=== PATIENT | male | born 1945 | race Caucasian/White ===

== ENCOUNTER 2018-06-09 13:40 | Inpatient (IN) | payer MEDICAID, MEDICARE ==
[~2018-06-09] VITALS: Ht 177.8 cm; Wt 63.5 kg
[~2018-06-09 13:40] MED LIST: ASPI-650 PO; CHOL100011 PO; INSU100I11 SQ; INSU100I13 SQ; INSU100V11 SQ; MAGN400T7 PO; METO10TA2 PO; NPH,100V5 SQ; ONDA4TAB10 PO; PROC10VI3 IM; SIMV40TA3 PO
[2018-06-09] MEDS ORDERED: ONDANSETRON 2MG/ML, 2ML IVPush ONE (14:00)
[2018-06-09] MEDS ORDERED: D5%-0.45% NACL 1,000 ML IV SCH (14:00)
[2018-06-09] MEDS ORDERED: MORPHINE SULFATE 4 MG/ML, 1ML IVPush PRN (14:00)
[2018-06-09] MEDS ORDERED: PLEASE ENTER HEIGHT AND WEIGHT MC SCH (14:00)
[2018-06-09] MEDS ORDERED: MORPHINE SULFATE 4 MG/ML, 1ML ONE (14:06)
[2018-06-09] MEDS ORDERED: ONDANSETRON 2MG/ML, 2ML ONE (14:06)
[2018-06-09 14:10] LABS: BASOPHILS # (AUTO) 0.01 x10^3/uL (0-0.1); BASOPHILS % (AUTO) 0 % (0-1); EOSINOPHILS # (AUTO) 0.01 x10^3/uL (0-0.4); EOSINOPHILS % (AUTO) 0 % (1-7); LYMPHOCYTES # (AUTO) 1.14 x10^3/uL (1-3.4); LYMPHOCYTES % (AUTO) 14 % (22-44); MD NO; MEAN CORPUSCULAR HEMOGLOBIN 31.4 pg (27.5-34.5); MEAN CORPUSCULAR HGB CONC 33.4 g/dL (33.2-36.2); MEAN CORPUSCULAR VOLUME 94.1 fL (81-97); MEAN PLATELET VOLUME 7.4 fL (7.4-10.4); MONOCYTES % (AUTO) 11 % (2-9); NEUTROPHILS # (AUTO) 6.28 x10^3/uL (1.8-6.8); NEUTROPHILS % (AUTO) 75 % (42-75); PLATELET COUNT 265 x10^3/uL (130-400); RED BLOOD COUNT 4.32 x10^6/uL (4.38-5.82); RED CELL DISTRIBUTION WIDTH 13.5 % (9.4-14.8)
[2018-06-09 14:14] LABS: ALBUMIN 3.3 g/dL (3.4-5.0); ANION GAP 6 mmol/L (5-15); CALCIUM 8.8 mg/dL (8.5-10.1); CHLORIDE 103 mmol/L (98-107); CREATININE 1.19 mg/dL (0.7-1.3)
--- NOTE | 2018-06-09 14:16 | NUR ---
PT ARRIVES FROM HOME VIA EMS AFTER HAVING A MGLF AT HOME. PT REPORTS HE FELL LAST NIGHT ON HIS WAY TO THE DINNER TABLE. WAS HAVIGN SOME PAIN BUT CONTINUED TO WALK. HOWEVER THIS MORNING PT WAS UNABLE TO MOVE. PT REPORTS HE JUST FELL ON THE TILE FLOOR AT HOME ON HIS LEFT HIP. PT DENIES ANY HEAD TRUAMA OR LOC. PT ON ARRIVAL HAS EXTERNALLY ROTATED LEFT FOOT AND ECCYMOSIS AROUND LEFT HIP. PT REPORTS MODERATE PAIN AND ALSO HAS DEFORMITY TO LEFT HIP PRESENT. PT HAS GOOD PULSES INTACT PEDAL AND FEMORAL BILATERALLY. PT CONNECTED TO MONITORS AND CALL LIGHT IN REACH. PT PLACED IN FALL RISK GOWN AND SOCKS. PT GIVEN FALL PREVENTION TEACHING. [facility]. PT WAS HYPOGLYCEMIC PER EMS BUT ORAL GLUCOSE GIVEN AND BG TO NORMAL.
--- NOTE | 2018-06-09 14:19 | NUR ---
PT MEDICATED PER [facility]. PIV WITH [id number] STARTED. PT MEDICATED FOR PAIN WELL.
[2018-06-09] MEDS ORDERED: INSU100I43 SC (14:23)
[2018-06-09] MEDS ORDERED: INSU100I28 SC (14:23)
--- NOTE | 2018-06-09 15:11 | NUR ---
Jania grullon in [facility] - 06/09/18 at 1512 by JUSTINO LAST MEAL @0930 THIS MORNING WITH H20
--- NOTE | 2018-06-09 15:12 | NUR ---
LAST MEAL @0930 THIS MORNING WITH H20
[2018-06-09 16:15] VITALS: BP 107/84
[2018-06-09] MEDS ORDERED: morphine SULFATE 10 MG/ML, 1ML IVPush PRN (16:30)
[2018-06-09] MEDS ORDERED: ONDANSETRON ODT 4 MG PO PRN (16:30)
[2018-06-09] MEDS ORDERED: ONDANSETRON 2MG/ML, 2ML IVPush PRN (16:30)
[2018-06-09 17:29] VITALS: BP 107/84
[2018-06-09 20:12] VITALS: BP 116/72
[2018-06-09] MEDS ORDERED: INSULIN LISPRO 100 UNITS/ML, PEN SQ-INSULIN SCH (21:00)
[2018-06-09] MEDS: INSULIN LISPRO 100 UNITS/ML, PEN SQ-INSULIN SCH (22:05)
[2018-06-09] MEDS: D5%-0.45% NACL 1,000 ML IV SCH (23:45)
[2018-06-10] MEDS ORDERED: GLUCAGON 1 MG IM PRN (00:30)
[2018-06-10] MEDS ORDERED: DEXTROSE 4 GM TAB.CHEW PO PRN (00:30)
[2018-06-10] MEDS ORDERED: DEXTROSE 50%, 50ML SYRINGE IVPush PRN (00:30)
[2018-06-10 01:11] VITALS: BP 107/68
[2018-06-10] MEDS: INSULIN LISPRO 100 UNITS/ML, PEN SQ-INSULIN SCH ×4 (03:07→20:31)
[2018-06-10 05:42] LABS: BASOPHILS # (AUTO) 0.01 x10^3/uL (0-0.1); BASOPHILS % (AUTO) 0 % (0-1); EOSINOPHILS # (AUTO) 0.04 x10^3/uL (0-0.4); EOSINOPHILS % (AUTO) 1 % (1-7); LYMPHOCYTES # (AUTO) 1.09 x10^3/uL (1-3.4); LYMPHOCYTES % (AUTO) 17 % (22-44); MD NO; MEAN CORPUSCULAR HEMOGLOBIN 32.8 pg (27.5-34.5); MEAN CORPUSCULAR HGB CONC 34.6 g/dL (33.2-36.2); MEAN CORPUSCULAR VOLUME 94.7 fL (81-97); MEAN PLATELET VOLUME 7.2 fL (7.4-10.4); MONOCYTES # (AUTO) 0.77 x10^3/uL (0.2-0.8); MONOCYTES % (AUTO) 12 % (2-9); NEUTROPHILS # (AUTO) 4.34 x10^3/uL (1.8-6.8); NEUTROPHILS % (AUTO) 70 % (42-75); PLATELET COUNT 222 x10^3/uL (130-400); RED CELL DISTRIBUTION WIDTH 13.5 % (9.4-14.8)
[2018-06-10 05:50] LABS: CHLORIDE 103 mmol/L (98-107)
[2018-06-10 05:58] LABS: ALANINE AMINOTRANSFERASE 17 U/L (12-78); ALBUMIN 2.6 g/dL (3.4-5.0); ALKALINE PHOSPHATASE 66 U/L (45-117); ANION GAP 6 mmol/L (5-15); BILIRUBIN,TOTAL 0.4 mg/dL (0.2-1.0); CREATININE 0.84 mg/dL (0.7-1.3); TOTAL PROTEIN 5.6 g/dL (6.4-8.2)
[2018-06-10 07:45] VITALS: BP 111/62
[2018-06-10] MEDS: D5%-0.45% NACL 1,000 ML IV SCH ×2 (08:54→14:10)
[2018-06-10] MEDS: SODIUM CHLORIDE FLUSH 10ML SYR IVF SCH ×2 (08:54→20:30)
[2018-06-10] MEDS ORDERED: PROMETHAZINE 25 MG/ML, 1ML IV PRN (09:00)
[2018-06-10] MEDS ORDERED: FENTANYL PF 100 MCG/2ML IV PRN (09:00)
[2018-06-10] MEDS ORDERED: METOPROLOL 1 MG/ML, 5ML IV PRN (09:00)
[2018-06-10] MEDS ORDERED: LABETALOL 5MG/ML, 20ML IV PRN (09:00)
[2018-06-10] MEDS ORDERED: PROCHLORPERAZINE 5 MG/ML, 2ML IV PRN (09:00)
[2018-06-10] MEDS ORDERED: DIPHENHYDRAMINE 50 MG/ML, 1ML IVPush PRN (09:00)
[2018-06-10] MEDS ORDERED: OXYcodone 5 MG/5 ML ORAL.SOL UDC PO PRN (09:00)
[2018-06-10] MEDS ORDERED: HALOPERIDOL 5 MG/ML IV PRN (09:00)
[2018-06-10] MEDS ORDERED: hydrALAzine 20 MG/ML, 1ML IV PRN (09:00)
[2018-06-10] MEDS ORDERED: HYDROmorphone 2 MG/ML, 1ML IVPush PRN (09:00)
[2018-06-10] MEDS ORDERED: MEPERIDINE/PF 25MG/0.5ML IVPush PRN (09:00)
[2018-06-10] MEDS ORDERED: FENTANYL PF 100 MCG/2ML ONE ×2 (10:52→11:23)
[2018-06-10] MEDS ORDERED: SUCCINYLCHOLINE 20 MG/ML, 10ML ONE (10:55)
[2018-06-10] MEDS ORDERED: CEFAZOLIN 1,000 MG ONE (10:55)
[2018-06-10] MEDS ORDERED: PHENYLEPHRINE 10 MG/ML ONE (10:55)
[2018-06-10] MEDS ORDERED: PROPOFOL 10 MG/ML, 20ML ONE (10:55)
[2018-06-10] MEDS ORDERED: ONDANSETRON 2MG/ML, 2ML ONE (10:55)
[2018-06-10] MEDS ORDERED: ROCURONIUM 10MG/ML,5ML ONE (10:55)
[2018-06-10] MEDS ORDERED: ACETAMINOPHEN 650 MG/20.3 ML UDC ONE (12:22)
[2018-06-10] MEDS ORDERED: OXYcodone 5 MG/5 ML ORAL.SOL UDC ONE (12:22)
[2018-06-10] MEDS: ACETAMINOPHEN 325 MG TABLET PO PRN (12:23)
[2018-06-10 13:10] VITALS: BP 110/69
[2018-06-10] MEDS ORDERED: POTASSIUM CHLORIDE 20 MEQ TAB.ER.PRT PO ONE (16:00)
[2018-06-10] MEDS: CALCIUM CARBONATE 500 MG TAB.CHEW PO PRN (16:15)
[2018-06-10 20:32] VITALS: BP 119/65
[2018-06-11 01:09] VITALS: BP 106/65
[2018-06-11] MEDS: D5%-0.45% NACL 1,000 ML IV SCH (03:43)
[2018-06-11 05:22] LABS: ANION GAP 6 mmol/L (5-15); CALCIUM 8.1 mg/dL (8.5-10.1); CHLORIDE 104 mmol/L (98-107)
[2018-06-11 05:23] LABS: BASOPHILS # (AUTO) 0.02 x10^3/uL (0-0.1); BASOPHILS % (AUTO) 0 % (0-1); EOSINOPHILS # (AUTO) 0.09 x10^3/uL (0-0.4); EOSINOPHILS % (AUTO) 1 % (1-7); LYMPHOCYTES # (AUTO) 0.77 x10^3/uL (1-3.4); LYMPHOCYTES % (AUTO) 11 % (22-44); MD NO; MEAN CORPUSCULAR HEMOGLOBIN 32.9 pg (27.5-34.5); MEAN CORPUSCULAR HGB CONC 34.7 g/dL (33.2-36.2); MEAN CORPUSCULAR VOLUME 94.9 fL (81-97); MEAN PLATELET VOLUME 7.6 fL (7.4-10.4); MONOCYTES # (AUTO) 0.69 x10^3/uL (0.2-0.8); MONOCYTES % (AUTO) 10 % (2-9); NEUTROPHILS # (AUTO) 5.17 x10^3/uL (1.8-6.8); NEUTROPHILS % (AUTO) 77 % (42-75); PLATELET COUNT 212 x10^3/uL (130-400); RED CELL DISTRIBUTION WIDTH 13.1 % (9.4-14.8)
[2018-06-11 05:25] LABS: CREATININE 0.87 mg/dL (0.7-1.3)
[2018-06-11] MEDS: ENOXAPARIN 40 MG/0.4 ML SQ SCH (05:49)
[2018-06-11 06:57] VITALS: BP 110/63
[2018-06-11] MEDS: OXYcodone IR 5MG TABLET PO PRN ×2 (07:45→16:13)
[2018-06-11] MEDS: SODIUM CHLORIDE FLUSH 10ML SYR IVF SCH ×2 (07:45→21:19)
[2018-06-11] MEDS: INSULIN LISPRO 100 UNITS/ML, PEN SQ-INSULIN SCH ×4 (07:46→21:00)
[2018-06-11] MEDS: INSULIN GLARGINE 100 UNITS/ML, PEN SQ-INSULIN SCH (08:34)
[2018-06-11 14:00] VITALS: BP 118/71
[2018-06-11] MEDS: ACETAMINOPHEN 325 MG TABLET PO PRN (16:13)
[2018-06-11 19:48] VITALS: BP 113/65
[2018-06-12 01:29] VITALS: BP 97/60
[2018-06-12] MEDS: ENOXAPARIN 40 MG/0.4 ML SQ SCH (06:33)
[2018-06-12 06:55] VITALS: BP 108/61
[2018-06-12] MEDS: INSULIN LISPRO 100 UNITS/ML, PEN SQ-INSULIN SCH ×4 (07:38→21:40)
[2018-06-12] MEDS: OXYcodone IR 5MG TABLET PO PRN (08:12)
[2018-06-12] MEDS: INSULIN GLARGINE 100 UNITS/ML, PEN SQ-INSULIN SCH (09:27)
[2018-06-12] MEDS: SODIUM CHLORIDE FLUSH 10ML SYR IVF SCH ×2 (09:28→21:39)
[2018-06-12] MEDS: SODIUM CHLORIDE 0.9% 1,000 ML IV SCH ×2 (11:25→21:39)
[2018-06-12] MEDS ORDERED: DOCUSATE 100 MG CAPSULE PO PRN (11:30)
[2018-06-12] MEDS ORDERED: POLYETHYLENE GLYCOL 17 GM PACKET NG PRN (11:30)
[2018-06-12 11:44] LABS: BASOPHILS # (AUTO) 0.01 x10^3/uL (0-0.1); BASOPHILS % (AUTO) 0 % (0-1); EOSINOPHILS # (AUTO) 0.13 x10^3/uL (0-0.4); EOSINOPHILS % (AUTO) 2 % (1-7); LYMPHOCYTES # (AUTO) 0.77 x10^3/uL (1-3.4); LYMPHOCYTES % (AUTO) 13 % (22-44); MD NO; MEAN CORPUSCULAR HEMOGLOBIN 32.5 pg (27.5-34.5); MEAN CORPUSCULAR HGB CONC 34.2 g/dL (33.2-36.2); MEAN CORPUSCULAR VOLUME 94.9 fL (81-97); MONOCYTES # (AUTO) 0.78 x10^3/uL (0.2-0.8); MONOCYTES % (AUTO) 13 % (2-9); NEUTROPHILS # (AUTO) 4.27 x10^3/uL (1.8-6.8); NEUTROPHILS % (AUTO) 72 % (42-75); PLATELET COUNT 275 x10^3/uL (130-400); RED BLOOD COUNT 2.91 x10^6/uL (4.38-5.82); RED CELL DISTRIBUTION WIDTH 13.5 % (9.4-14.8)
[2018-06-12 13:02] VITALS: BP 102/54
[2018-06-12 20:11] VITALS: BP 124/65
[2018-06-13] VITALS (8 sets, daily range): BP systolic 66–126; BP diastolic 39–73
[2018-06-13] MEDS: ENOXAPARIN 40 MG/0.4 ML SQ SCH (05:52)
[2018-06-13] MEDS: SODIUM CHLORIDE 0.9% 1,000 ML IV SCH ×2 (07:51→18:22)
[2018-06-13] MEDS: INSULIN LISPRO 100 UNITS/ML, PEN SQ-INSULIN SCH ×4 (07:52→22:30)
[2018-06-13] MEDS: SODIUM CHLORIDE FLUSH 10ML SYR IVF SCH ×2 (07:53→21:00)
[2018-06-13] MEDS: INSULIN GLARGINE 100 UNITS/ML, PEN SQ-INSULIN SCH (09:00)
[2018-06-14 02:13] VITALS: BP 135/69
[2018-06-14] MEDS: SODIUM CHLORIDE 0.9% 1,000 ML IV SCH ×6 (04:26→17:00)
[2018-06-14 04:53] LABS: ANION GAP 15 mmol/L (5-15); CALCIUM 8.5 mg/dL (8.5-10.1); CHLORIDE 110 mmol/L (98-107)
[2018-06-14 04:54] LABS: CREATININE 1.08 mg/dL (0.7-1.3)
[2018-06-14] MEDS: ENOXAPARIN 40 MG/0.4 ML SQ SCH (06:26)
[2018-06-14 06:29] LABS: BASOPHILS # (AUTO) 0.02 x10^3/uL (0-0.1); BASOPHILS % (AUTO) 0 % (0-1); EOSINOPHILS % (AUTO) 0 % (1-7); LYMPHOCYTES # (AUTO) 0.65 x10^3/uL (1-3.4); LYMPHOCYTES % (AUTO) 8 % (22-44); MD NO; MEAN CORPUSCULAR HEMOGLOBIN 31.5 pg (27.5-34.5); MEAN CORPUSCULAR HGB CONC 33.2 g/dL (33.2-36.2); MEAN CORPUSCULAR VOLUME 94.8 fL (81-97); MEAN PLATELET VOLUME 6.6 fL (7.4-10.4); MONOCYTES # (AUTO) 0.89 x10^3/uL (0.2-0.8); MONOCYTES % (AUTO) 11 % (2-9); NEUTROPHILS # (AUTO) 6.71 x10^3/uL (1.8-6.8); NEUTROPHILS % (AUTO) 81 % (42-75); PLATELET COUNT 466 x10^3/uL (130-400); RED BLOOD COUNT 3.13 x10^6/uL (4.38-5.82); RED CELL DISTRIBUTION WIDTH 13.2 % (9.4-14.8)
[2018-06-14 08:00] LABS: ALBUMIN 2.5 g/dL (3.4-5.0); ANION GAP 20 mmol/L (5-15); CALCIUM 8.6 mg/dL (8.5-10.1); CHLORIDE 109 mmol/L (98-107)
[2018-06-14 08:04] VITALS: BP 122/60
[2018-06-14 08:11] LABS: ALANINE AMINOTRANSFERASE 14 U/L (12-78); ALKALINE PHOSPHATASE 78 U/L (45-117); BILIRUBIN,TOTAL 0.7 mg/dL (0.2-1.0)
[2018-06-14] MEDS: CALCIUM CARBONATE 500 MG TAB.CHEW PO PRN (08:11)
[2018-06-14] MEDS: SODIUM CHLORIDE FLUSH 10ML SYR IVF SCH ×2 (08:13→21:00)
[2018-06-14] MEDS: INSULIN LISPRO 100 UNITS/ML, PEN SQ-INSULIN SCH ×4 (08:15→21:00)
[2018-06-14 08:33] LABS: FREE T4 (FREE THYROXINE) 1.33 ng/dL (0.76-1.46)
[2018-06-14] MEDS ORDERED: INSULIN GLARGINE 100 UNITS/ML, PEN SQ-INSULIN SCH ×2 (09:00)
[2018-06-14] MEDS ORDERED: SODIUM CHLORIDE 0.9% 1,000 ML IV SCH (11:30)
[2018-06-14] MEDS ORDERED: REGULAR INSULIN 62.5 UNITS in SODIUM CHLORIDE 0.9% 249.375 ML IV PRN (11:30)
[2018-06-14 11:39] LABS: MICROSCOPIC NOT IND
[2018-06-14 11:49] LABS: O2 FLOW ROOM AIR L/min
[2018-06-14 12:23] LABS: ANION GAP 12 mmol/L (5-15); CALCIUM 8.1 mg/dL (8.5-10.1); CHLORIDE 112 mmol/L (98-107)
[2018-06-14 12:27] LABS: ACETONE, SERUM Large (80mg/dL) mg/dL (Negative)
[2018-06-14] MEDS ORDERED: POTASSIUM PHOSPHATE 44 MEQ in SODIUM CHLORIDE 0.9% 500 ML IV ONE (13:00)
[2018-06-14 15:20] LABS: ANION GAP 8 mmol/L (5-15); CALCIUM 7.6 mg/dL (8.5-10.1); CHLORIDE 116 mmol/L (98-107); CREATININE 0.89 mg/dL (0.7-1.3)
[2018-06-14 17:59] LABS: ANION GAP 6 mmol/L (5-15); CALCIUM 7.5 mg/dL (8.5-10.1); CHLORIDE 117 mmol/L (98-107); CREATININE 0.83 mg/dL (0.7-1.3)
[2018-06-14] MEDS: FAMOTIDINE 20 MG TABLET PO SCH (22:04)
[2018-06-15 00:55] VITALS: BP 112/58
[2018-06-15] MEDS: SODIUM CHLORIDE 0.9% 1,000 ML IV SCH (03:27)
[2018-06-15] MEDS: ENOXAPARIN 40 MG/0.4 ML SQ SCH (06:07)
[2018-06-15] MEDS: INSULIN LISPRO 100 UNITS/ML, PEN SQ-INSULIN SCH ×2 (07:00→11:00)
[2018-06-15] MEDS ORDERED: GLUCAGON 1 MG IM PRN (07:30)
[2018-06-15] MEDS ORDERED: DEXTROSE 4 GM TAB.CHEW PO PRN (07:30)
[2018-06-15] MEDS ORDERED: DEXTROSE 50%, 50ML SYRINGE IVPush PRN (07:30)
[2018-06-15 08:06] LABS: ALBUMIN 1.9 g/dL (3.4-5.0); CHLORIDE 116 mmol/L (98-107)
[2018-06-15 08:11] LABS: ALANINE AMINOTRANSFERASE 11 U/L (12-78); ALKALINE PHOSPHATASE 57 U/L (45-117); ANION GAP 6 mmol/L (5-15); BILIRUBIN,TOTAL 0.3 mg/dL (0.2-1.0); CREATININE 0.66 mg/dL (0.7-1.3); TOTAL PROTEIN 4.6 g/dL (6.4-8.2)
[2018-06-15 08:25] VITALS: BP 114/65
[2018-06-15] MEDS: FAMOTIDINE 20 MG TABLET PO SCH (08:36)
[2018-06-15] MEDS: SODIUM CHLORIDE FLUSH 10ML SYR IVF SCH (08:37)
[2018-06-15] MEDS ORDERED: INSULIN GLARGINE 100 UNITS/ML, PEN SQ-INSULIN SCH (09:00)
[2018-06-15] MEDS ORDERED: SODIUM CHLORIDE FLUSH 10ML SYR IVF SCH (09:00)
[2018-06-15] MEDS ORDERED: TRAM100T33 PO (11:10)
[2018-06-15] MEDS ORDERED: INSU100I11 SQ-INSULIN (11:10)
[2018-06-15] MEDS ORDERED: ACET325T14 PO (11:10)
[2018-06-15] MEDS ORDERED: INSU100I13 SQ-INSULIN (11:10)
[2018-06-15] MEDS ORDERED: FAMO20TA7 PO (11:10)
[2018-06-15] MEDS ORDERED: DOCU-131 PO (11:12)
[2018-06-15 13:05] VITALS: BP 105/51
[2018-06-16] MEDS ORDERED: INSULIN GLARGINE 100 UNITS/ML, PEN SQ-INSULIN SCH (09:00)
== END 2018-06-15 16:50 | DRG 480 ==
LOC: ED 15:12 → EDIP 15:13 → 4NOR 16:23 → CCU 06-14 12:26 → 4NOR 06-14 20:25
PROVIDERS: ADMIT Internal Medicine; ATTEND Internal Medicine
PROC: 0QS736Z Reposition Left Upper Femur with Intramedullary Internal Fixation Device, Percutaneous Approach (ICD-10-PCS; principal; 2018-06-11)
DX: S72.142A Displaced intertrochanteric fracture of left femur, initial encounter for closed fracture (principal); E43 Unspecified severe protein-calorie malnutrition; E10.10 Type 1 diabetes mellitus with ketoacidosis without coma; D62 Acute posthemorrhagic anemia; E10.649 Type 1 diabetes mellitus with hypoglycemia without coma; E78.5 Hyperlipidemia, unspecified; E86.0 Dehydration; E87.5 Hyperkalemia; E87.6 Hypokalemia; I10 Essential (primary) hypertension; I95.1 Orthostatic hypotension; J44.9 Chronic obstructive pulmonary disease, unspecified; K59.00 Constipation, unspecified; W17.89XA Other fall from one level to another, initial encounter; Z86.73 Personal history of transient ischemic attack (TIA), and cerebral infarction without residual deficits; Y93.89 Activity, other specified; Y92.89 Other specified places as the place of occurrence of the external cause; Z79.82 Long term (current) use of aspirin; Z79.899 Other long term (current) drug therapy; Y99.8 Other external cause status
CPT/HCPCS: 36415; 36600; 71045; 72170; 76001; 80048; 80053; 81003; 82010; 82040; 82533; 82803; 82947; 82962; 83605; 83690; 83735; 84100; 84439; 84443; 84481; 85025; 87081; 93005; 93306; 96361; 96374; 96375; C1713; G0378; J0690; J1650; J1815; J2405; J2704; J3010; J0330; J2370; J7030; J7040; J7050